=== PATIENT | male | born 1965 | race Two or more races ===

== ENCOUNTER 2018-05-19 20:52 | Emergency (ER) | payer OTHER ==
[~2018-05-19] VITALS: Ht 175.3 cm; Wt 99.8 kg
--- NOTE | 2018-05-19 21:00 | NUR ---
ED Nurse Note: Pt start to have abdominal gas 25 minutes ago while he was working. No nausea no vomitting. Pain 9/10. mass on umbilicus noted. AO4. Facial grimacing, moaning and graspin of site. ERMD at bedside. IV access established on right forearm
[2018-05-19] MEDS: HYDROmorphone 1mg/ml Carpuject IVP ONE (21:15)
[2018-05-19 21:21] VITALS: BP 165/100
--- NOTE | 2018-05-19 21:23 | Emergency Room Report ---
History of Present Illness General Chief Complaint: Abdominal Pain Source: Patient Present Illness HPI This is a 52-year-old male who has a history umbilical hernia. He presents with acute onset abdominal pain for the last hour. He is severe. 10 out of 10. Pain is localized to the umbilical hernia. There is a mass there. Nothing made it better. Any movement made it worse. No fever chills but no nausea no vomiting or diarrhea. Never had this problem before. Allergies: Coded Allergies: No Known Allergies (Unverified , 05/19/18) Patient History Past Medical History: see triage record, old chart reviewed Past Surgical History: other Pertinent Family History: none Social History: Denies: smoking Immunizations: other Reviewed Nursing Documentation: PMH: Agreed; PSxH: Agreed Review of Systems Eye: Denies: eye pain, blurred vision ENT: Denies: ear pain, nose congestion, throat swelling Respiratory: Denies: cough, shortness of breath Cardiovascular: Denies: chest pain, palpitations Gastrointestinal: Reports: abdominal pain; Denies: diarrhea, nausea, vomiting Musculoskeletal: Denies: back pain, joint pain Skin: Denies: rash Neurological: Denies: headache, numbness Endocrine: Denies: increased thirst, increased urine Hematologic/Lymphatic: Denies: easy bruising All Other Systems: negative except mentioned in HPI Physical Exam Vital Signs Date Time Temp Pulse Resp B/P (MAP) Pulse Ox O2 Delivery O2 Flow Rate FiO2 05/19/18 20:45 99.0 97 18 165/100 99 Room Air vitals with high blood pressure Sp02 EP Interpretation: reviewed, normal General Appearance: well appearing, no apparent distress, alert Head: normocephalic, atraumatic Eyes: bilateral eye PERRL, bilateral eye EOMI ENT: hearing grossly normal, normal pharynx Neck: full range of motion, supple, no meningismus Respiratory: chest non-tender, lungs clear, normal breath sounds Cardiovascular #1: regular rate, rhythm, no murmur Gastrointestinal: normal bowel sounds, no organomegaly, no bruit, non-distended , other - Patient has a 5 cm incarcerated periumbilical hernia. Musculoskeletal: back normal, gait/station normal, normal range of motion Psychiatric: mood/affect normal Skin: warm/dry Medical Decision Making Diagnostic Impression: Primary Impression: Incarcerated umbilical hernia ER Course This patient presents with incarcerated umbilical hernia. I reduce it without any difficulty. Patient felt better now. We'll discharge home. We'll refer for outpatient surgery. Last Vital Signs Date Time Temp Pulse Resp B/P (MAP) Pulse Ox O2 Delivery O2 Flow Rate FiO2 05/19/18 20:45 99.0 97 18 165/100 99 Room Air Status: improved Disposition: HOME, SELF-CARE Condition: Stable Additional Instructions: Follow-up with your doctor in in 7 days. You will need a referral to see a surgeon for hernia surgery. Return if worse. Brent Trejo MD May 19, 2018 21:23
[2018-05-19] MEDS ORDERED: IBUPROFEN600 MG ORAL (21:24)
[2018-05-19 21:30] VITALS: BP 165/100
--- NOTE | 2018-05-19 21:30 | NUR ---
ED Nurse Note: Patient cleared for discharge per ERMD. NAD. VSS. Patient given prescriptions and discharge instructions; verbalized understanding. IV and ID band removed. Patient ambulated steady with all personal belongings.
== END 2018-05-19 21:30 | disposition home or self-care (01) ==
LOC: EDBD 20:52 → EMR 21:18
DX: K42.0 Umbilical hernia with obstruction, without gangrene (principal)
CPT/HCPCS: 96374; 96375; 99284; J1170; J2405